=== PATIENT | female | born 1990 | race Caucasian/White ===

== ENCOUNTER → 2016-06-27 | Outpatient (CLI) | payer OTHER ==
[~2016-06-27] MED LIST: ABAGIO PO; AUBAGIO14 MG PO; FERROUS SU325 MG/TAB PO; NEURONTIN100 MG/CAP PO; NORCO 325 MG-51 TAB PO; NORCO 325 MG-7.1 TAB PO; PREDNISONE20 MG PO; SYNTHROID0.112 MG/T PO; WELLBUTRIN XL300 M1 PO
== END ==
LOC: COL.RAD 06-22 07:30
DX: R10.2 Pelvic and perineal pain (principal)

== ENCOUNTER 2016-08-14 18:02 | Emergency (ER) | payer OTHER ==
[~2016-08-14] VITALS: Ht 162.6 cm; Wt 97.7 kg
[~2016-08-14 18:02] MED LIST changes: -AUBAGIO14 MG PO; -FERROUS SU325 MG/TAB PO; -NEURONTIN100 MG/CAP PO; -NORCO 325 MG-51 TAB PO; -PREDNISONE20 MG PO; -WELLBUTRIN XL300 M1 PO
[2016-08-14 18:11] VITALS: TEMP 98.2
[2016-08-14] MEDS ORDERED: WELLBUTRIN XL300 M1 PO (18:14)
[2016-08-14] MEDS ORDERED: NEURONTIN100 MG/CAP PO (18:15)
[2016-08-14 20:36] VITALS: BP 131/78; PULSE 66
== END 2016-08-14 20:37 | disposition home or self-care (01) ==
LOC: COL.ER 18:02
DX: S39.012A Strain of muscle, fascia and tendon of lower back, initial encounter (principal); S29.012A Strain of muscle and tendon of back wall of thorax, initial encounter; V43.52XA Car driver injured in collision with other type car in traffic accident, initial encounter; Y92.410 Unspecified street and highway as the place of occurrence of the external cause

== ENCOUNTER → 2016-09-02 | Emergency (ER) | payer OTHER ==
[~2016-09-02] VITALS: Ht 162.6 cm; Wt 95.5 kg
[~2016-09-02] MED LIST changes: +AUBAGIO14 MG PO; +FERROUS SU325 MG/TAB PO; +NEURONTIN100 MG/CAP PO; +NORCO 325 MG-51 TAB PO; +PREDNISONE20 MG PO; +WELLBUTRIN XL300 M1 PO
[2016-09-02 16:38] VITALS: BP 131/69; TEMP 98.1
[2016-09-02 17:53] VITALS: PULSE 80
== END | disposition home or self-care (01) ==
LOC: COL.ER 16:37
DX: S61.412A Laceration without foreign body of left hand, initial encounter (principal); W26.0XXA Contact with knife, initial encounter; Y92.009 Unspecified place in unspecified non-institutional (private) residence as the place of occurrence of the external cause

== ENCOUNTER → 2016-11-06 | Outpatient (CLI) | payer OTHER ==
[2016-11-06 07:11] LABS: HEMATOCRIT 39.4 % (37.0-47.0); HEMOGLOBIN 13.7 g/dl (12.5-16.0); MEAN CELL VOLUME 90 fl (80.0-100.0); MEAN CORPUSCULAR HEMOGLOBIN 31 pg (27.0-31.0); MEAN CORPUSCULAR HGB CONC 35 g/dl (33.0-37.0); MEAN PLATELET VOLUME 10.1 fl (7.4-10.4); PLATELET COUNT 283 K/mm3 (130-400); REDCELL DISTRIBUTION WIDTH-CV 11.2 % (11.5-14.5); WHITE BLOOD COUNT 5.8 K/mm3 (4.8-10.8)
== END ==
LOC: COL.RAD 11-02 07:30
PROVIDERS: Psychiatry & Neurology Neurology
DX: G35 Multiple sclerosis (principal); G31.9 Degenerative disease of nervous system, unspecified; R53.83 Other fatigue
CPT/HCPCS: A9585

== ENCOUNTER 2016-12-28 22:39 | Emergency (ER) | payer OTHER ==
[~2016-12-28] VITALS: Ht 162.6 cm; Wt 99.1 kg
[~2016-12-28 22:39] MED LIST changes: -AUBAGIO14 MG PO; -FERROUS SU325 MG/TAB PO; -NORCO 325 MG-51 TAB PO; -PREDNISONE20 MG PO
[2016-12-28 22:42] VITALS: BP 150/71; TEMP 97.8
[2016-12-28] MEDS ORDERED: FERROUS SU325 MG/TAB PO (22:46)
[2016-12-28] MEDS ORDERED: AUBAGIO14 MG PO (22:47)
[2016-12-28] MEDS ORDERED: NORCO 325 MG-51 TAB PO (23:11)
[2016-12-29] MEDS ORDERED: PREDNISONE20 MG PO (00:24)
[2016-12-29 00:46] VITALS: PULSE 70
== END 2016-12-29 00:46 | disposition home or self-care (01) ==
LOC: COL.ER 22:39
DX: G35 Multiple sclerosis (principal)
CPT/HCPCS: J1885; J7512

== ENCOUNTER 2017-04-14 16:05 | Emergency (ER) | payer OTHER ==
[~2017-04-14] VITALS: Ht 162.6 cm; Wt 100.0 kg
[~2017-04-14 16:05] MED LIST changes: +AUBAGIO14 MG PO; +FERROUS SU325 MG/TAB PO; +NORCO 325 MG-51 TAB PO; +PREDNISONE20 MG PO
[2017-04-14 16:09] VITALS: BP 142/93; PULSE 80; TEMP 98.9
[2017-04-14] MEDS ORDERED: TYSABRI20 MG/ML IV (16:35)
[2017-04-14] MEDS ORDERED: DOXYCYCLINE 10100 MG PO (16:36)
== END 2017-04-14 16:39 | disposition home or self-care (01) ==
LOC: COL.ER 16:05
DX: T63.331A Toxic effect of venom of brown recluse spider, accidental (unintentional), initial encounter (principal); L03.311 Cellulitis of abdominal wall; F32.9 Major depressive disorder, single episode, unspecified; E03.9 Hypothyroidism, unspecified; G35 Multiple sclerosis

== ENCOUNTER 2017-08-17 00:03 | Emergency (ER) | payer OTHER ==
[~2017-08-17] VITALS: Ht 162.6 cm; Wt 97.7 kg
[~2017-08-17 00:03] MED LIST changes: +DOXYCYCLINE 10100 MG PO; +TYSABRI20 MG/ML IV
[2017-08-17 00:13] VITALS: BP 160/76; TEMP 98.2
[2017-08-17] MEDS ORDERED: PROFERRIN ES12 MG (00:26)
[2017-08-17] MEDS ORDERED: NORCO 325 MG-7.1 TAB PO (01:28)
[2017-08-17] MEDS ORDERED: PREDNISONE20 MG PO (01:28)
[2017-08-17 01:55] VITALS: PULSE 57
== END 2017-08-17 01:55 | disposition home or self-care (01) ==
LOC: COL.ER 00:03
DX: M25.511 Pain in right shoulder (principal); M25.512 Pain in left shoulder; M25.551 Pain in right hip; M25.552 Pain in left hip; G35 Multiple sclerosis; E03.9 Hypothyroidism, unspecified; Z87.891 Personal history of nicotine dependence; Z90.49 Acquired absence of other specified parts of digestive tract; Z90.89 Acquired absence of other organs
CPT/HCPCS: J1885; J7512

== ENCOUNTER 2018-01-21 16:46 | Emergency (ER) | payer OTHER ==
[~2018-01-21] VITALS: Ht 162.6 cm; Wt 109.1 kg
[~2018-01-21 16:46] MED LIST changes: +PROFERRIN ES12 MG
[2018-01-21 17:02] VITALS: BP 153/88; TEMP 98.8
[2018-01-21] MEDS ORDERED: NEXPLANON68 MG ID (17:38)
[2018-01-21] MEDS ORDERED: CYMBALTA 60MG60 MG PO (17:38)
[2018-01-21 17:39] LABS: BASO % 0.3 % (0.0-2.0); EOS # 0.3 (0.0-0.7); EOS % 2.5 % (0-4.0); GRAN # 5.5 (1.4-6.5); GRAN % 49.5 % (42.2-75.2); HEMOGLOBIN 12.3 g/dl (12.5-16.0); LYMPH # 4.6 (1.2-3.4); LYMPH % 41.1 % (20.0-51.0); MEAN CELL VOLUME 86 fl (80.0-100.0); MEAN CORPUSCULAR HEMOGLOBIN 31 pg (27.0-31.0); MEAN CORPUSCULAR HGB CONC 36 g/dl (33.0-37.0); MEAN PLATELET VOLUME 9.6 fl (7.4-10.4); MONO # 0.7 (0.1-0.6); MONO % 6.1 % (1.7-9.3); PLATELET COUNT 312 K/mm3 (130-400); RED BLOOD COUNT 3.97 M/mm3 (4.10-5.30); REDCELL DISTRIBUTION WIDTH-CV 12.7 % (11.5-14.5)
[2018-01-21 17:40] LABS: HEMATOCRIT 34.3 % (37.0-47.0)
[2018-01-21 17:51] LABS: ALBUMIN 3.9 gm/dL (3.5-5.0); BILIRUBIN,TOTAL 0.4 mg/dL (0.0-1.0); CREATININE, serum 0.53 mg/dL (0.52-1.25); POTASSIUM 3.7 mmol/L (3.4-5.0); TOTAL PROTEIN 6.9 gm/dL (6.4-8.2)
[2018-01-21 18:52] VITALS: PULSE 80
== END 2018-01-21 18:54 | disposition home or self-care (01) ==
LOC: COL.ER 16:46
PROVIDERS: Nurse Practitioner
DX: R22.41 Localized swelling, mass and lump, right lower limb (principal); E03.9 Hypothyroidism, unspecified; D64.9 Anemia, unspecified; G35 Multiple sclerosis; Z87.891 Personal history of nicotine dependence

== ENCOUNTER → 2019-12-03 | Outpatient (CLI) | payer BC ==
[~2019-12-03] MED LIST changes: +CYMBALTA 60MG60 MG PO; +NEXPLANON68 MG ID
== END ==
LOC: COL.RAD 07:05
DX: G35 Multiple sclerosis (principal)
CPT/HCPCS: A9585

== ENCOUNTER → 2019-12-04 | Outpatient (CLI) | payer BC | LOC: COL.RAD 07:26 | DX: M51.37 Other intervertebral disc degeneration, lumbosacral region (principal); G35 Multiple sclerosis | CPT/HCPCS: A9585 ==

== ENCOUNTER 2021-04-07 11:01 | Emergency (ER) | payer BC ==
[~2021-04-07] VITALS: Ht 162.6 cm; Wt 104.5 kg
[2021-04-07 11:16] VITALS: TEMP 98.2
[2021-04-07] MEDS ORDERED: NORCO 325 MG-51 TAB PO ×3 (15:24→15:29)
[2021-04-07] MEDS ORDERED: BACTRIM DS 8001 TAB PO ×3 (15:24→15:29)
[2021-04-07 15:30] VITALS: BP 99/49; PULSE 93
== END 2021-04-07 14:06 | disposition other institution (70) ==
LOC: COL.ER 11:01
DX: L05.01 Pilonidal cyst with abscess (principal); G35 Multiple sclerosis
CPT/HCPCS: J0690; J2250; J2405; J2704; J3010; J7120

== ENCOUNTER 2022-08-29 10:17 | Outpatient (RCR) | payer BC ==
[~2022-08-29 10:17] MED LIST changes: +BACTRIM DS 8001 TAB PO; +PERCOCET 325 MG1 TA2 PO; +ZOFRAN ODT4 MG PO
== END 2022-09-12 | disposition home or self-care (01) ==
LOC: WSST
DX: R13.19 Other dysphagia (principal); G35 Multiple sclerosis

== ENCOUNTER 2023-07-02 15:21 | Emergency (ER) | payer OTHER ==
[~2023-07-02] VITALS: Ht 162.6 cm; Wt 113.6 kg
[2023-07-02 15:30] VITALS: TEMP 98.1
[2023-07-02] MEDS ORDERED: oxyCODONE/Acetaminophen 5-325 MG TAB PO ONE (16:45)
[2023-07-02] MEDS ORDERED: Ketorolac 30 MG/ML VIAL IM ONE (16:45)
[2023-07-02] MEDS ORDERED: Cyclobenzaprine 10 MG TAB PO ONE (16:45)
[2023-07-02] MEDS ORDERED: MOTRIN 800800 MG/TAB PO (18:00)
[2023-07-02] MEDS ORDERED: FLEXERIL 1010 MG/TAB PO (18:00)
[2023-07-02] MEDS ORDERED: NORCO 325 MG-51 TAB PO (18:01)
[2023-07-02 18:24] VITALS: BP 134/82; PULSE 68
== END 2023-07-02 18:26 | disposition home or self-care (01) ==
LOC: COL.ER 15:21
DX: S39.012A Strain of muscle, fascia and tendon of lower back, initial encounter (principal); S13.9XXA Sprain of joints and ligaments of unspecified parts of neck, initial encounter; V49.40XA Driver injured in collision with unspecified motor vehicles in traffic accident, initial encounter; Y92.410 Unspecified street and highway as the place of occurrence of the external cause
CPT/HCPCS: J1885

== ENCOUNTER 2023-11-12 23:38 | Emergency (ER) | payer BC ==
[~2023-11-12] VITALS: Ht 162.6 cm; Wt 113.6 kg
[~2023-11-12 23:38] MED LIST changes: +FLEXERIL 1010 MG/TAB PO; +MOTRIN 800800 MG/TAB PO
[2023-11-12 23:45] VITALS: TEMP 98.4
[2023-11-12] MEDS ORDERED: dexAMETHasone 10 MG/ML VIAL PO ONE (23:45)
[2023-11-12] MEDS ORDERED: Ketorolac 30 MG/ML VIAL IM ONE (23:45)
[2023-11-13] MEDS ORDERED: NAPROSYN500 MG PO (00:14)
[2023-11-13] MEDS ORDERED: FLEXERIL 1010 MG/TAB PO (00:14)
[2023-11-13 00:26] VITALS: BP 155/98; PULSE 71
== END 2023-11-13 00:26 | disposition home or self-care (01) ==
LOC: COL.ER 23:38
DX: S13.9XXA Sprain of joints and ligaments of unspecified parts of neck, initial encounter (principal); Z87.891 Personal history of nicotine dependence; X58.XXXA Exposure to other specified factors, initial encounter
CPT/HCPCS: J1100; J1885

== ENCOUNTER 2024-02-12 07:31 | Emergency (ER) | payer BC ==
[~2024-02-12] VITALS: Ht 162.6 cm; Wt 113.6 kg
[~2024-02-12 07:31] MED LIST changes: +NAPROSYN500 MG PO
[2024-02-12] MEDS ORDERED: PREDNISONE20 MG PO (09:43)
[2024-02-12] MEDS ORDERED: PROAIR HFA0.09 MG/AC IH (09:43)
[2024-02-12] MEDS ORDERED: ZITHROMAX Z PA250 MG PO (09:43)
[2024-02-12 10:00] VITALS: BP 145/89; PULSE 95; TEMP 98.8
== END 2024-02-12 10:00 | disposition home or self-care (01) ==
LOC: COL.ER 07:31
DX: J40 Bronchitis, not specified as acute or chronic (principal); J04.0 Acute laryngitis